=== PATIENT | female | born 1955 | race Caucasian/White ===

== ENCOUNTER 2018-09-24 08:07 | Emergency (ER) | payer OTHER ==
--- NOTE | 2018-09-24 08:21 | ER Report ---
History and Physical Time Seen By MD: 08:21 Hx. of Stated Complaint: LOWER BACK PAIN WITH RADIATION OF PAIN TO THE RIGHT FLANK HPI/ROS Sudden onset of right flank and suprapubic pain this morning, Then n/v. Difficult to get comfortable. Hominy well prior to episode. No dysuria or hematuria. Remainder of the 14 system rev: Yes Allergies: Coded Allergies: Penicillins (Verified Allergy, Severe, RASH, 09/24/18) Home Meds No Active Prescriptions or Reported Meds Reviewed Nurses Notes: Yes Old Medical Records Reviewed: Yes Hx Smoking: No Smoking Status: Never Smoker Exposure to Second Hand Smoke?: No Hx Substance Use Disorder: No Hx Alcohol Use: No Constitutional Vital Sign - Last 24 Hours 09/24/18 09/24/18 09/24/18 09/24/18 08:07 08:16 08:17 08:30 Temp 97.5 Pulse 56 67 Resp 18 B/P (MAP) 187/95 (125) 187/95 176/103 (127) Pulse Ox 95 95 O2 Delivery Room Air 09/24/18 09/24/18 09/24/18 09/24/18 08:37 09:00 09:07 09:37 Pulse 54 55 57 B/P (MAP) 163/92 (115) Pulse Ox 96 94 92 09/24/18 09/24/18 09/24/18 09/24/18 09:42 09:47 10:00 10:12 Pulse 51 67 B/P (MAP) 159/82 (107) 156/84 (108) Pulse Ox 95 96 09/24/18 09/24/18 09/24/18 10:17 10:30 10:47 Pulse 59 61 B/P (MAP) 130/87 (101) Pulse Ox 95 91 Physical Exam General Appearance: The patient is alert, has no immediate need for airway protection and no current signs of toxicity. Eyes: Pupils equal and round no injection. Respiratory: Chest is non tender, lungs are clear to auscultation. Cardiac: regular rate and rhythm Gastrointestinal: Abdomen is soft and non tender, no masses, bowel sounds normal. Skin: No rashes or lesions. DIFFERENTIAL DIAGNOSIS: After history and physical exam differential diagnosis was considered for back pain including but not limited to muscular pain, herniated disc, spine fracture, intra-abdominal causes and urinary tract infection. Medical Decision Making Data Points Result Diagram: 09/24/18 0820 09/24/18 0820 Laboratory Hematology Test 09/24/18 08:20 Red Blood Count 5.05 M/uL (4.17-5.56) Mean Corpuscular Volume 93.2 fL (80.0-96.0) Mean Corpuscular Hemoglobin 31.6 pg (26.0-33.0) Mean Corpuscular Hemoglobin Concent 33.9 g/dL (32.0-36.0) Red Cell Distribution Width 13.1 % (11.5-14.5) Mean Platelet Volume 10.1 fL (7.2-11.1) Neutrophils (%) (Auto) 59.2 % (39.4-72.5) Lymphocytes (%) (Auto) 29.8 % (17.6-49.6) Monocytes (%) (Auto) 7.4 % (4.1-12.4) Eosinophils (%) (Auto) 2.9 % (0.4-6.7) Basophils (%) (Auto) 0.7 % (0.3-1.4) Nucleated RBC Relative Count (auto) 0.0 /100WBC Neutrophils # (Auto) 3.7 K/uL (2.0-7.4) Lymphocytes # (Auto) 1.8 K/uL (1.3-3.6) Monocytes # (Auto) 0.5 K/uL (0.3-1.0) Eosinophils # (Auto) 0.2 K/uL (0.0-0.5) Basophils # (Auto) 0.0 K/uL (0.0-0.1) Nucleated RBC Absolute Count (auto) 0.00 K/uL Urine Color Yellow Urine Clarity Clear Urine pH 6.0 pH (4.8-9.5) Urine Specific [place] 1.025 Urine Protein 30 mg/dL (NEGATIVE) Urine Glucose (UA) Negative mg/dL (NEGATIVE) Urine Ketones Negative mg/dL (NEGATIVE) Urine Blood Trace intact (NEGATIVE) Urine Nitrite Negative (NEGATIVE) Urine Bilirubin Negative (NEGATIVE) Urine Urobilinogen Negative mg/dL (0.2-1.9) Urine Leukocyte Esterase Negative (NEGATIVE) Urine RBC 0-2 /HPF (0-2/HPF) Urine WBC 0-1 /HPF (0-5/HPF) Urine Squamous Epithelial Cells Many /LPF (</=FEW) Urine Bacteria Few /HPF (NONE-FEW) Urine Mucus None /HPF (NONE-FEW) Sodium Level 140 mmol/L (137-145) Potassium Level 4.0 mmol/L (3.5-5.0) Chloride Level 106 mmol/L (98-107) Carbon Dioxide Level 22 mmol/L (22-31) Blood Urea Nitrogen 19 mg/dl (7-18) Creatinine 0.70 mg/dl (0.52-1.04) Glomerular Filtration Rate Calc > 60.0 Random Glucose 126 mg/dl (75-110) Calcium Level 9.7 mg/dl (8.4-10.2) Total Bilirubin 0.8 mg/dl (0.2-1.3) Aspartate Amino Transf (AST/SGOT) 34 U/L (0-35) Alanine Aminotransferase (ALT/SGPT) 29 U/L (0-56) Alkaline Phosphatase 82 U/L (0-126) Total Protein 8.1 g/dl (6.3-8.2) Albumin 4.8 g/dl (3.5-5.0) Chemistry Test 09/24/18 08:20 White Blood Count 6.2 k/uL (4.5-11.0) Red Blood Count 5.05 M/uL (4.17-5.56) Hemoglobin 16.0 g/dL (12.0-16.0) Hematocrit 47.1 % (34.0-47.0) Mean Corpuscular Volume 93.2 fL (80.0-96.0) Mean Corpuscular Hemoglobin 31.6 pg (26.0-33.0) Mean Corpuscular Hemoglobin Concent 33.9 g/dL (32.0-36.0) Red Cell Distribution Width 13.1 % (11.5-14.5) Platelet Count 209 K/uL (150-450) Mean Platelet Volume 10.1 fL (7.2-11.1) Neutrophils (%) (Auto) 59.2 % (39.4-72.5) Lymphocytes (%) (Auto) 29.8 % (17.6-49.6) Monocytes (%) (Auto) 7.4 % (4.1-12.4) Eosinophils (%) (Auto) 2.9 % (0.4-6.7) Basophils (%) (Auto) 0.7 % (0.3-1.4) Nucleated RBC Relative Count (auto) 0.0 /100WBC Neutrophils # (Auto) 3.7 K/uL (2.0-7.4) Lymphocytes # (Auto) 1.8 K/uL (1.3-3.6) Monocytes # (Auto) 0.5 K/uL (0.3-1.0) Eosinophils # (Auto) 0.2 K/uL (0.0-0.5) Basophils # (Auto) 0.0 K/uL (0.0-0.1) Nucleated RBC Absolute Count (auto) 0.00 K/uL Urine Color Yellow Urine Clarity Clear Urine pH 6.0 pH (4.8-9.5) Urine Specific [place] 1.025 Urine Protein 30 mg/dL (NEGATIVE) Urine Glucose (UA) Negative mg/dL (NEGATIVE) Urine Ketones Negative mg/dL (NEGATIVE) Urine Blood Trace intact (NEGATIVE) Urine Nitrite Negative (NEGATIVE) Urine Bilirubin Negative (NEGATIVE) Urine Urobilinogen Negative mg/dL (0.2-1.9) Urine Leukocyte Esterase Negative (NEGATIVE) Urine RBC 0-2 /HPF (0-2/HPF) Urine WBC 0-1 /HPF (0-5/HPF) Urine Squamous Epithelial Cells Many /LPF (</=FEW) Urine Bacteria Few /HPF (NONE-FEW) Urine Mucus None /HPF (NONE-FEW) Glomerular Filtration Rate Calc > 60.0 Calcium Level 9.7 mg/dl (8.4-10.2) Total Bilirubin 0.8 mg/dl (0.2-1.3) Aspartate Amino Transf (AST/SGOT) 34 U/L (0-35) Alanine Aminotransferase (ALT/SGPT) 29 U/L (0-56) Alkaline Phosphatase 82 U/L (0-126) Total Protein 8.1 g/dl (6.3-8.2) Albumin 4.8 g/dl (3.5-5.0) Urinalysis Test 09/24/18 08:20 Urine Color Yellow Urine Clarity Clear Urine pH 6.0 pH (4.8-9.5) Urine Specific [place] 1.025 Urine Protein 30 mg/dL (NEGATIVE) Urine Glucose (UA) Negative mg/dL (NEGATIVE) Urine Ketones Negative mg/dL (NEGATIVE) Urine Blood Trace intact (NEGATIVE) Urine Nitrite Negative (NEGATIVE) Urine Bilirubin Negative (NEGATIVE) Urine Urobilinogen Negative mg/dL (0.2-1.9) Urine Leukocyte Esterase Negative (NEGATIVE) Urine RBC 0-2 /HPF (0-2/HPF) Urine WBC 0-1 /HPF (0-5/HPF) Urine Squamous Epithelial Cells Many /LPF (</=FEW) Urine Bacteria Few /HPF (NONE-FEW) Urine Mucus None /HPF (NONE-FEW) ED Course/Re-evaluation ED Course History, physical, labs, and CT scan consistent with 3 mm right sided ureteral calculi at the UVJ. No tenderness to palpation at McBurney's point. No fever chills. Symptoms improved with Toradol and morphine. She is currently pain-free. I will discharge her with prescriptions for pain and anti-nausea medications. She will follow-up with her primary care physician back in [place]. Decision to Disposition Date: Sep 24, 2018 Decision to Disposition Time: 10:52 Depart Departure Latest Vital Signs Vital Signs Date Time Temp Pulse Resp B/P (MAP) Pulse Ox O2 Delivery O2 Flow Rate FiO2 09/24/18 10:47 61 91 09/24/18 10:30 130/87 (101) 09/24/18 08:17 97.5 18 Room Air Impression: Primary Impression: Ureteral calculi Condition: Improved Disposition: HOME OR SELF-CARE New Scripts Ondansetron Hcl (ZOFRAN) 4 Mg Tablet 4 MG PO Q4-6H for 3 Days, #12 TAB Prov: RON GOLDMAN MD 09/24/18 Hydrocodone Bit/Acetaminophen (HYDROCODON-ACETAMINOPHEN 5-325) 1 Each Tablet 1 EACH PO Q6H for 2 Days, #10 TAB Prov: RON GOLDMAN MD 09/24/18 Ketorolac Tromethamine (KETOROLAC TROMETHAMINE) 10 Mg Tab 10 MG PO Q6H PRN for PAIN, #12 TAB 0 Refills Prov: RON GOLDMAN MD 09/24/18 Patient Instructions: Ureteral Stones (ED) RON GOLDMAN MD Sep 24, 2018 08:21
[2018-09-24] MEDS ORDERED: KETOROLAC 30 MG/ML VIAL IVP ONE (08:25)
[2018-09-24] MEDS ORDERED: ONDANSETRON 4 MG/2 ML VIAL IVP ONE (08:25)
[2018-09-24] MEDS ORDERED: NS(*) 0.9% 1000 ML BAG 1,000 ML IV ONE (08:25)
[2018-09-24 08:38] LABS: PLATELET COUNT, AUTOMATED 209 K/uL (150-450)
[2018-09-24] MEDS ORDERED: MORPHINE 4 MG/ML SDV IVP ONE (08:55)
--- NOTE | 2018-09-24 10:21 | RADIOLOGY IMAGING REPORT ---
[place] [facility] [place] Paige Chirinos : 1955 MR: [id number] V: [id number] EXAM DATE: ORDERING PHYSICIAN: RON GOLDMAN TECHNOLOGIST: Location: [facility] Patient: Paige Chirinos : 1955 Visit/Account:[id number] Date of Sevice: 09/24/2018 CT ABDOMEN PELVIS W/O CON HISTORY: Right flank pain. Hematuria. TECHNIQUE: Axial images were obtained through the abdomen and pelvis without intravenous contrast . One of the following dose optimization techniques was utilized in the performance of this exam: autom ated exposure control; adjustment of the mA and/or kv according to patient size; or use of iterative reconstruction technique. Specific details can be referenced in the facility's radiology CT exam oper ational policy. CONTRAST: None COMPARISON: None. FINDINGS: Visualized lung bases: Negative. Hepatobiliary: Negative. Spleen: Negative. Adrenals: Negative. Pancreas: Negative. Kidneys/ureters/bladder: Mild right hydronephrosis/hydroureter to a 3 mm calculus at the right vesic oureteral junction. Mild right perinephric stranding. 1-2 mm nonobstructing right lower pole renal calculus. No left renal or left ureteral calculus. No left hydronephrosis. Bowel/peritoneum/mesentery: Tiny hiatal hernia. Vessels: Negative. Lymph nodes: Negative. Pelvic genitourinary: Negative. Bones/body wall: Negative. Other findings: None significant IMPRESSION: 1. 3 mm calculus at the right vesicoureteral junction with mild right hydronephrosis/hydroureter. M ild right perinephric stranding can be seen with forniceal rupture or pyelonephritis. Recommend enrique elation with urinalysis. Report Dictated By: Behzad Rosales MD at 09/24/2018 9:53 AM Report E-Signed By: Behzad Rosales MD at 09/24/2018 10:17 AM [id number]
[2018-09-24 10:30] VITALS: BP 130/87
[2018-09-24] MEDS ORDERED: KET10 PO (11:09)
[2018-09-24] MEDS ORDERED: HYDR-385 PO (11:09)
[2018-09-24] MEDS ORDERED: ONDA4TAB97 PO (11:10)
== END 2018-09-24 11:22 | disposition home or self-care (01) ==
LOC: ER 08:24
DX: N20.1 Calculus of ureter (principal)
CPT/HCPCS: 74176; 81001; 85025; 87088; 96361; 96374; 96375; 99284; J1885; J2270; J2405; J7030; 82040; 82247; 82310; 82374; 82435; 82565; 82947; 84075; 84132; 84155; 84295; 84450; 84460; 84520